=== PATIENT | female | born 1975 | race Hispanic/Latino ===

== ENCOUNTER 2020-02-11 18:26 | Emergency (ER) | payer SELFPAY ==
[2020-02-11 18:34] VITALS: BP 143/94
[2020-02-11] MEDS ORDERED: ACETAMINOPHEN 500 MG TAB PO ONE (18:38)
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
== END 2020-02-11 19:27 | disposition left against medical advice (07) ==
LOC: ED 18:26
DX: S09.8XXA Other specified injuries of head, initial encounter (principal); H11.32 Conjunctival hemorrhage, left eye; K21.9 Gastro-esophageal reflux disease without esophagitis; F32.9 Major depressive disorder, single episode, unspecified; F41.9 Anxiety disorder, unspecified; F20.9 Schizophrenia, unspecified; F17.200 Nicotine dependence, unspecified, uncomplicated; Z88.8 Allergy status to other drugs, medicaments and biological substances; Y04.2XXA Assault by strike against or bumped into by another person, initial encounter; Y93.89 Activity, other specified; Y92.89 Other specified places as the place of occurrence of the external cause; Y99.8 Other external cause status
CPT/HCPCS: 99283